=== PATIENT | female | born 1965 | race African-American/Black ===

== ENCOUNTER 2025-01-01 00:24 | Inpatient (IN) | payer OTHER ==
[~2025-01-01] VITALS: Ht 170.2 cm; Wt 80.3 kg
[2025-01-01] VITALS (16 sets, daily range): BP systolic 94–162; BP diastolic 53–86; PULSE 87–109; RESP 15–23; TEMP 36.3918–37.2; O2SAT 98–100
[~2025-01-01 00:24] MED LIST: ASCO100T12; B12/1TAB3; BLAC200C PO; CLON1PAT11; FISH1CAP34; HYDR-1348; LEVO88TA7 PO; WARF2.5T47
[2025-01-01] MEDS: SODIUM CHLORIDE 0.9% (SEPSIS BOLUS) IV ONE (02:00)
[2025-01-01] MEDS: HYDRALAZINE 20MG/ML VIAL IV ONE (02:13)
[2025-01-01] MEDS: ACETAMINOPHEN 325MG TABLET PO ONE (02:20)
[2025-01-01 02:21] LABS: BASOPHILS % 0.4 % (0.0-2.0); HEMATOCRIT. 35.2 % (36.0-48.0); HEMOGLOBIN. 11.2 g/dL (12.0-16.0); LYMPHOCYTES % 8.4 % (20.0-50.0); MEAN CORPUSCULAR HEMOGLOBIN 26.3 pg (28.0-32.0); MEAN CORPUSCULAR HGB CONC 31.9 g/dL (31.0-37.0); MEAN CORPUSCULAR VOLUME 82.6 fL (81.0-99.0); MEAN PLATELET VOLUME 8.5 fl (7.4-10.4); MONOCYTES % 2.4 % (2.0-8.0); NEUTROPHILS % 86.8 % (40.0-76.0); PLATELET 334 x1000/uL (130-400); RED BLOOD CELL COUNT 4.25 mill/uL (4.2-5.4); RED CELL DISTRIBUTION WIDTH 17.5 % (11.6-14.6); WHITE BLOOD COUNT 18.4 x1000/uL (4.5-11.0)
[2025-01-01 02:30] LABS: BG BASE EXCESS -2.3 mmol/L (-2.0-3.0); BG CARBOXYHEMOGLOBIN 0.5 % (0.5-1.5); BG FRACTION INSPIRED OXYGEN 100; BG HCO3 ACT 20.9 mmol/L (21.0-28.0); BG OXYHEMOGLOBIN 96.5 % (94.0-98.0); BG PCO2 30.6 mmHg (32.0-45.0); BG PH 7.452 (7.350-7.450); BG PO2 91.6 mmHg (83.0-108.0); BG SAMPLE SITE RIGHT RADIAL; BG TOTAL HEMOGLOBIN 10.9 g/dL (12.0-16.0); BG VENT MODE MASK - NRB
[2025-01-01 02:53] LABS: PROTHROMBIN TIME 28.7 sec (9.6-11.0)
[2025-01-01] MEDS ORDERED: SODIUM CHLORIDE 0.9% 100 ML IV SCH (03:00)
[2025-01-01] MEDS: HYDROMORPHONE HCL/PF 2MG/ML INJ IV ONE (03:54)
[2025-01-01] MEDS: AZTREONAM 2 GM in DEXT 5% WATER 100 ML IV SCH (04:10)
[2025-01-01 04:11] LABS: CLARITY URINE CLEAR (CLEAR); COLOR URINE RED (YELLOW); GLUCOSE URINE TRACE (NEGATIVE); KETONES URINE NEGATIVE (NEGATIVE); LEUKOCYTE ESTERASE URINE TRACE (NEGATIVE); NITRITE URINE NEGATIVE (NEGATIVE); OCCULT BLOOD URINE 3+ (NEGATIVE); PH URINE >=9.0 (4.5-8.0); PROTEIN URINE 2+ (NEGATIVE); SPECIFIC GRAVITY URINE 1.006 (1.005-1.030); UROBILINOGEN URINE 0.2 E.U./dL (0.2-1.0)
[2025-01-01 04:21] LABS: *AMPHETAMINES SCREEN URINE NEGATIVE (NEGATIVE); *BARBITURATES SCREEN URINE NEGATIVE (NEGATIVE); *BENZODIAZEPINES SCREEN URINE NEGATIVE (NEGATIVE); *COCAINE SCREEN URINE NEGATIVE (NEGATIVE); METHADONE URINE SCREEN NEGATIVE (NEGATIVE); OPIATES URINE SCREEN NEGATIVE (NEGATIVE); PHENCYCLIDINE URINE SCREEN NEGATIVE (NEGATIVE)
[2025-01-01 04:22] LABS: CANNABINOID URINE SCREEN NEGATIVE (NEGATIVE); ECSTASY MDMA SCREEN URINE NEGATIVE (NEGATIVE)
[2025-01-01 04:27] LABS: CHLORIDE 98 mEq/L (98-107); POTASSIUM 4.9 mEq/L (3.5-5.1); SODIUM 137 mEq/L (136-145)
[2025-01-01 04:28] LABS: CARBON DIOXIDE 27 mEq/L (21-32)
[2025-01-01 04:33] LABS: GLUCOSE 128 mg/dL (70-105); UREA NITROGEN BLOOD 43 mg/dL (9-23)
[2025-01-01 04:34] LABS: ETHANOL BLOOD < 10 mg/dL (<10)
[2025-01-01] MEDS: HYDRALAZINE 20MG/ML VIAL IV SCH (04:54)
[2025-01-01] MEDS: VANCOMYCIN 1G PREMIX 200 ML IV SCH (04:58)
[2025-01-01 05:07] LABS: CREATININE 9.9 mg/dL (0.6-1.0); TROPONIN I HIGH SENSITIVITY 690 ng/L (3.0-34)
[2025-01-01] MEDS: ACETAMINOPHEN 1000MG/100ML 100 ML IV SCH (05:24)
[2025-01-01 05:26] LABS: BACTERIA URINE NONE SEEN; RBC URINE TNTC /hpf (0-2); SQUAMOUS EPITHELIAL CELL URINE FEW /lpf (RARE/1+); WBC URINE 0-2 /hpf (0-2)
[2025-01-01] MEDS ORDERED: WARF4TAB71 PO (09:27)
[2025-01-01] MEDS ORDERED: SODI650T PO (09:27)
[2025-01-01] MEDS ORDERED: LOSA25TA26 PO (09:27)
[2025-01-01] MEDS ORDERED: ASPI-1497 PO (09:27)
[2025-01-01] MEDS ORDERED: FOLI0.8T53 PO (09:27)
[2025-01-01 13:57] LABS: HEPATITIS B SURFACE ANTIGEN NEGATIVE (Negative)
[2025-01-01 15:16] LABS: HEPATITIS A AB IGM NEGATIVE (Negative)
[2025-01-01 15:17] LABS: HEPATITIS B CORE AB IGM NEGATIVE (Negative); HEPATITIS C AB NON REACTIVE (Neg) (Negative)
[2025-01-01] MEDS: ACETAMINOPHEN 325MG TABLET PO PRN (16:08)
[2025-01-01] MEDS ORDERED: NALOXONE HCL 0.4MG/ML VIAL IV PRN (18:00)
[2025-01-01] MEDS: HYDROCODONE/ACETAMINOPHEN 5/325MG TABLET PO PRN (18:56)
[2025-01-01] MEDS: VANCOMYCIN 750MG PMX (XELLIA) 150 ML IV NR (20:21)
[2025-01-01] MEDS ORDERED: EPOE200014 SQ (21:38)
[2025-01-01] MEDS: SODIUM BICARBONATE 650MG TABLET PO SCH (22:16)
[2025-01-01] MEDS: LORAZEPAM 2MG/ML UD SYRINGE IV PRN (22:22)
[2025-01-02] VITALS (13 sets, daily range): BP systolic 101–160; BP diastolic 54–94; PULSE 85–113; RESP 15–26; TEMP 36.2–37; O2SAT 95–100
[2025-01-02] MEDS ORDERED: PIPERACILLIN/TAZO 3.375G/100ML 100 ML IV SCH (01:00)
[2025-01-02 06:43] LABS: BASOPHILS % 0.3 % (0.0-2.0); DIFFERENTIAL COMMENT 0; EOSINOPHILS % 2.3 % (0.0-5.0); HEMATOCRIT. 32.1 % (36.0-48.0); HEMOGLOBIN. 9.6 g/dL (12.0-16.0); LYMPHOCYTES % 14.6 % (20.0-50.0); MEAN CORPUSCULAR HGB CONC 29.9 g/dL (31.0-37.0); MEAN CORPUSCULAR VOLUME 87.1 fL (81.0-99.0); MEAN PLATELET VOLUME 8.6 fl (7.4-10.4); MONOCYTES % 4.4 % (2.0-8.0); NEUTROPHILS % 78.4 % (40.0-76.0); PLATELET 342 x1000/uL (130-400); RED BLOOD CELL COUNT 3.69 mill/uL (4.2-5.4); RED CELL DISTRIBUTION WIDTH 18.2 % (11.6-14.6)
[2025-01-02 06:48] LABS: INR 3.3
[2025-01-02 08:05] LABS: INFLUENZA TYPE A Presumptive Negative (Pres. Neg.); INFLUENZA TYPE B Presumptive Negative (Pres. Neg.)
[2025-01-02] MEDS: ASPIRIN 81MG EC TABLET PO SCH (08:22)
[2025-01-02] MEDS: LEVOTHYROXINE SODIUM 88MCG TABLET PO SCH (08:22)
[2025-01-02] MEDS: LOSARTAN 25 MG TABLET PO SCH (08:28)
[2025-01-02] MEDS ORDERED: WARFARIN SODIUM 4MG TABLET PO SCH (09:00)
[2025-01-02 14:06] LABS: TROPONIN I HIGH SENSITIVITY 131 ng/L (3.0-34)
[2025-01-02 16:39] LABS: TROPONIN I HIGH SENSITIVITY 142 ng/L (3.0-34)
[2025-01-02 19:14] LABS: TROPONIN I HIGH SENSITIVITY 137 ng/L (3.0-34)
[2025-01-03] MEDS ORDERED: EPOETIN ALFA-EPBX 4,000 UNIT/ML VIAL SUBCUT SCH (21:00)
== END 2025-01-02 22:43 | disposition short-term general hospital (02) | DRG 871 ==
LOC: ER 00:24 → 5EST 02:50 → ENRESERV 06:04
PROVIDERS: ADMIT Internal Medicine; ATTEND Internal Medicine
PROC: 5A09357 Assistance with Respiratory Ventilation, Less than 24 Consecutive Hours, Continuous Positive Airway Pressure (ICD-10-PCS; principal; 2025-01-01)
PROC: 5A1D70Z Performance of Urinary Filtration, Intermittent, Less than 6 Hours Per Day (ICD-10-PCS; 2025-01-01)
DX: A41.9 Sepsis, unspecified organism (principal); I21.4 Non-ST elevation (NSTEMI) myocardial infarction; R65.21 Severe sepsis with septic shock; N18.6 End stage renal disease; J18.9 Pneumonia, unspecified organism; I50.23 Acute on chronic systolic (congestive) heart failure; J96.00 Acute respiratory failure, unspecified whether with hypoxia or hypercapnia; I13.2 Hypertensive heart and chronic kidney disease with heart failure and with stage 5 chronic kidney disease, or end stage renal disease; Z20.822 Contact with and (suspected) exposure to COVID-19; E03.9 Hypothyroidism, unspecified; D64.9 Anemia, unspecified; Z99.2 Dependence on renal dialysis; Z95.2 Presence of prosthetic heart valve; F41.9 Anxiety disorder, unspecified; I25.10 Atherosclerotic heart disease of native coronary artery without angina pectoris; Z88.0 Allergy status to penicillin; I25.2 Old myocardial infarction; E78.5 Hyperlipidemia, unspecified; Z90.49 Acquired absence of other specified parts of digestive tract; Z90.710 Acquired absence of both cervix and uterus; Z98.61 Coronary angioplasty status; Z79.01 Long term (current) use of anticoagulants
CPT/HCPCS: 36415; 36600; 71045; 80048; 80305; 80320; 81003; 82375; 82805; 83605; 83880; 84145; 84484; 85025; 86705; 86709; 87340; 87426; 87804; 90935; 93005; 93306; 94070; 94660; 94664; 98960; 99291; J0360; J1171; J2060; J3370; J3490; J7030; J7060; G0480; J0131